=== PATIENT | male | born 1985 | race African-American/Black ===

== ENCOUNTER 2022-05-31 12:51 | Inpatient (IN) | payer OTHER ==
[2022-05-31 16:08] VITALS: BMI 21.9
[2022-05-31] MEDS ORDERED: BISMUTH SUBSALICYLATE 524 MG/30 ML PO PRN (17:53)
[2022-05-31] MEDS ORDERED: MAGNESIUM CITRATE 300 ML BOTTLE PO PRN (17:53)
[2022-05-31] MEDS ORDERED: IBUPROFEN 600 MG TABLET (FP) PO PRN (17:53)
[2022-05-31] MEDS ORDERED: IBUPROFEN 400 MG TABLET (FP) PO PRN (17:53)
[2022-05-31] MEDS ORDERED: MAGNESIUM HYDROX 2400MG/30ML ORAL SUSPENSION 30 ML CUP PO PRN (17:53)
[2022-05-31] MEDS ORDERED: LOPERAMIDE HCL 2 MG CAPSULE PO PRN (17:53)
[2022-05-31] MEDS ORDERED: DICYCLOMINE HCL 10 MG CAPSULE PO PRN (17:53)
[2022-05-31] MEDS ORDERED: BENZOCAINE/MENTHOL (CHLORASEPTIC ) LOZENGE MM PRN (17:53)
[2022-05-31] MEDS ORDERED: ONDANSETRON *ODT* 4 MG TABLET SL PRN (17:53)
[2022-05-31] MEDS ORDERED: ACETAMINOPHEN 325 MG TABLET (FP) PO PRN ×2 (17:53)
[2022-05-31] MEDS ORDERED: METHOCARBAMOL 500 MG TABLET PO PRN (17:53)
[2022-05-31] MEDS ORDERED: MAG HYDROX/AL HYDROX/SIMETH 30 ML UNIT-DOSE CUP PO PRN (17:53)
[2022-05-31] MEDS: hydrOXYzine PAMOATE 25 MG CAPSULE (FP) PO SCH ×2 (20:19→22:41)
[2022-05-31] MEDS: MELATONIN 5 MG TABLETS PO SCH (22:41)
[2022-05-31] MEDS: THIAMINE HCL 100 MG TABLET (FP) PO SCH (22:41)
[2022-05-31] MEDS: NICOTINE 10 MG CARTRIDGE (INHALER) IH PRN (22:43)
[2022-05-31] MEDS: HYDROCORTISONE 1% TOPICAL CREAM 30 GM TUBE TP SCH (23:32)
[2022-06-01] MEDS: hydrOXYzine PAMOATE 25 MG CAPSULE (FP) PO SCH ×5 (07:17→22:23)
[2022-06-01] MEDS ORDERED: chlordiazePOXIDE HCL 25 MG CAPSULE PO PRN (09:26)
[2022-06-01] MEDS: PRENATAL VITAMINS W/ FOLIC ACID TABLET (FP) PO SCH (10:21)
[2022-06-01] MEDS: NICOTINE 7 MG/24 HOURS TOPICAL PATCH TD SCH (10:21)
[2022-06-01] MEDS: HYDROCORTISONE 1% TOPICAL CREAM 30 GM TUBE TP SCH ×2 (10:21→22:47)
[2022-06-01] MEDS: chlordiazePOXIDE HCL 25 MG CAPSULE PO SCH ×3 (10:22→22:22)
[2022-06-01] MEDS: NICOTINE 10 MG CARTRIDGE (INHALER) IH PRN ×2 (10:23→18:07)
[2022-06-01 11:03] LABS: HEMATOCRIT 43.4 % (35.4-49); HEMOGLOBIN 14.2 GM/dL (11.7-16.9); MCH 31.4 pg (25.7-33.7); MCHC 32.8 g/dl (32.0-35.9); MEAN CELL VOLUME 95.9 fl (80-96); MEAN PLT VOLUME 9.5 fl (7.5-11.1); PLATELET COUNT 135 10^3/uL (134-434); RBC 4.53 M/mm3 (4.00-5.60); RDW 14.4 % (11.9-15.9); WHITE BLOOD COUNT 5.1 K/mm3 (4.0-10.0)
[2022-06-01 11:11] LABS: CALCIUM 9.8 mg/dL (8.5-10.1)
[2022-06-01 11:12] LABS: ALBUMIN 4.4 g/dl (3.4-5.0); BLOOD UREA NITROGEN 10.4 mg/dL (7-18)
[2022-06-01 11:15] LABS: CREATININE 0.9 mg/dL (0.55-1.3)
[2022-06-01 11:16] LABS: TOT PROT 7.9 g/dl (6.4-8.2)
[2022-06-01 11:17] LABS: BILIRUBIN,TOTAL 1.2 mg/dL (0.2-1)
[2022-06-01] MEDS: THIAMINE HCL 100 MG TABLET (FP) PO SCH (22:22)
[2022-06-01] MEDS: MELATONIN 5 MG TABLETS PO SCH (22:23)
[2022-06-02] MEDS: chlordiazePOXIDE HCL 25 MG CAPSULE PO SCH ×2 (06:23→10:28)
[2022-06-02] MEDS: hydrOXYzine PAMOATE 25 MG CAPSULE (FP) PO SCH ×3 (06:23→13:37)
[2022-06-02] MEDS: NICOTINE 10 MG CARTRIDGE (INHALER) IH PRN (06:24)
[2022-06-02 08:50] VITALS: BP 121/83; PULSE 79; RESP 18; TEMP 98.4
[2022-06-02] MEDS: HYDROCORTISONE 1% TOPICAL CREAM 30 GM TUBE TP SCH (10:26)
[2022-06-02] MEDS: PRENATAL VITAMINS W/ FOLIC ACID TABLET (FP) PO SCH (10:26)
[2022-06-02] MEDS: NICOTINE 7 MG/24 HOURS TOPICAL PATCH TD SCH (10:27)
[2022-06-03] MEDS ORDERED: chlordiazePOXIDE HCL 25 MG CAPSULE PO SCH (05:00)
[2022-06-04] MEDS ORDERED: chlordiazePOXIDE HCL 10 MG CAPSULE PO PRN
[2022-06-04] MEDS ORDERED: chlordiazePOXIDE HCL 10 MG CAPSULE PO SCH (05:00)
[2022-06-05] MEDS ORDERED: chlordiazePOXIDE HCL 10 MG CAPSULE PO SCH (05:00)
[2022-06-06] MEDS ORDERED: chlordiazePOXIDE HCL 10 MG CAPSULE PO ONE (05:00)
== END 2022-06-02 13:59 | disposition left against medical advice (07) | DRG 770 ==
LOC: YASAS 12:51 → Y3N 19:48
PROVIDERS: ADMIT Allergy & Immunology; ATTEND Surgery
PROC: HZ2ZZZZ Detoxification Services for Substance Abuse Treatment (ICD-10-PCS; principal; 2022-05-31)
DX: F10.230 Alcohol dependence with withdrawal, uncomplicated (principal); F12.20 Cannabis dependence, uncomplicated; F17.210 Nicotine dependence, cigarettes, uncomplicated
CPT/HCPCS: 36415; 80053; 85027; 86780; C9803-CS; U0003; U0005

== ENCOUNTER 2024-08-16 20:22 | Inpatient (IN) | payer OTHER ==
[2024-08-16 21:51] VITALS: BMI 23.3
[2024-08-16] MEDS ORDERED: chlordiazePOXIDE HCL 25 MG CAPSULE PO PRN (22:11)
[2024-08-16] MEDS ORDERED: BENZONATATE 200 MG CAPSULE PO PRN (22:11)
[2024-08-16] MEDS ORDERED: NICOTINE POLACRILEX 2 MG LOZENGE BC PRN (22:11)
[2024-08-16] MEDS ORDERED: LOPERAMIDE HCL 2 MG CAPSULE PO PRN (22:11)
[2024-08-16] MEDS ORDERED: IBUPROFEN 400 MG TABLET (FP) PO PRN (22:11)
[2024-08-16] MEDS ORDERED: DICYCLOMINE HCL 10 MG CAPSULE PO PRN (22:11)
[2024-08-16] MEDS ORDERED: ACETAMINOPHEN 325 MG TABLET (FP) PO PRN (22:11)
[2024-08-16] MEDS ORDERED: BENZOCAINE/MENTHOL (CHLORASEPTIC ) LOZENGE MM PRN (22:11)
[2024-08-16] MEDS ORDERED: MAGNESIUM HYDROX 2400MG/30ML ORAL SUSPENSION 30 ML CUP PO PRN (22:11)
[2024-08-16] MEDS ORDERED: BISMUTH SUBSALICYLATE 524 MG/30 ML PO PRN (22:11)
[2024-08-16] MEDS ORDERED: POLYETHYLENE GLYCOL (HEALTHYLAX) 3350 17 GM PACKET PO PRN (22:11)
[2024-08-16] MEDS ORDERED: ONDANSETRON *ODT* 4 MG TABLET SL PRN (22:11)
[2024-08-16] MEDS ORDERED: MAG HYDROX/AL HYDROX/SIMETH 30 ML UNIT-DOSE CUP PO PRN (22:11)
[2024-08-16] MEDS ORDERED: guaiFENesin 600 MG TABLET.ER (FP) PO PRN (22:11)
[2024-08-17] MEDS: chlordiazePOXIDE HCL 25 MG CAPSULE PO SCH (00:58)
[2024-08-17] MEDS: PRENATAL VITAMINS W/ FOLIC ACID TABLET (FP) PO SCH (10:19)
[2024-08-17 11:48] LABS: HEMATOCRIT 45.9 % (35.4-49); HEMOGLOBIN 15.2 GM/dL (11.7-16.9); MCH 27.7 pg (25.7-33.7); MCHC 33.2 g/dl (32.0-35.9); MEAN CELL VOLUME 83.5 fl (80-96); MEAN PLT VOLUME 8.8 fl (7.5-11.1); PLATELET COUNT 95 10^3/uL (134-434); RDW 14.1 % (11.9-15.9); WHITE BLOOD COUNT 4.9 K/mm3 (4.0-10.0)
[2024-08-17 11:59] LABS: POTASSIUM 3.5 mmol/L (3.5-5.1)
[2024-08-17 12:01] LABS: CALCIUM 8.8 mg/dL (8.5-10.1)
[2024-08-17 12:03] LABS: ALBUMIN 3.4 g/dl (3.4-5.0); BLOOD UREA NITROGEN 9.4 mg/dL (7-18)
[2024-08-17 12:05] LABS: CREATININE 0.8 mg/dL (0.55-1.3)
[2024-08-17 12:06] LABS: BILIRUBIN,TOTAL 1.1 mg/dL (0.2-1); TOT PROT 6.9 g/dl (6.4-8.2)
[2024-08-17] MEDS: hydrOXYzine PAMOATE 25 MG CAPSULE (FP) PO PRN (16:36)
[2024-08-17] MEDS: NICOTINE POLACRILEX 2 MG GUM BUC PRN (16:39)
[2024-08-17] MEDS: IBUPROFEN 600 MG TABLET (FP) PO PRN (19:19)
[2024-08-17] MEDS: METHOCARBAMOL 500 MG TABLET PO PRN (20:46)
[2024-08-17] MEDS: MELATONIN 5 MG TABLETS PO SCH (22:15)
[2024-08-17] MEDS: THIAMINE 100 MG TABLET PO SCH (22:15)
[2024-08-18] MEDS: chlordiazePOXIDE HCL 25 MG CAPSULE PO SCH (06:30)
[2024-08-18] MEDS: traZODone HCL 100 MG TABLET (FP) PO SCH (22:30)
[2024-08-19] MEDS ORDERED: chlordiazePOXIDE HCL 10 MG CAPSULE PO PRN
[2024-08-19] MEDS: chlordiazePOXIDE HCL 10 MG CAPSULE PO SCH (06:00)
[2024-08-19] MEDS: LORazepam 0.5 MG TABLET PO SCH (14:31)
[2024-08-20] MEDS ORDERED: chlordiazePOXIDE HCL 10 MG CAPSULE PO SCH (05:00)
[2024-08-20] MEDS: LORazepam 0.5 MG TABLET PO SCH (06:05)
[2024-08-20 09:22] VITALS: BP 116/77; PULSE 90; RESP 18; TEMP 98
[2024-08-20] MEDS: NALOXONE (NYS OPIOID OVERDOSE PROGRAM) 4 MG/0.1 ML SPRAY NS PRN (12:43)
[2024-08-21] MEDS ORDERED: chlordiazePOXIDE HCL 10 MG CAPSULE PO ONE (05:00)
[2024-08-21] MEDS ORDERED: LORazepam 0.5 MG TABLET PO ONE (06:00)
== END 2024-08-20 12:17 | disposition home or self-care (01) | DRG 775 ==
LOC: YASAS 20:22 → Y6N 22:27
PROVIDERS: ADMIT Allergy & Immunology; ATTEND Surgery
PROC: HZ2ZZZZ Detoxification Services for Substance Abuse Treatment (ICD-10-PCS; principal; 2024-08-16)
DX: F10.230 Alcohol dependence with withdrawal, uncomplicated (principal); F12.20 Cannabis dependence, uncomplicated; F17.210 Nicotine dependence, cigarettes, uncomplicated; F10.280 Alcohol dependence with alcohol-induced anxiety disorder; F10.282 Alcohol dependence with alcohol-induced sleep disorder; F10.24 Alcohol dependence with alcohol-induced mood disorder; F32.A Depression, unspecified
CPT/HCPCS: 36415; 80053; 80305; 80307; 85027; 86780; 93005; 93010